=== PATIENT | female | born 1990 | race American Indian/Alaskan Native ===

== ENCOUNTER 2022-01-13 20:38 | Inpatient (IN) | payer OTHER ==
[2022-01-13] MEDS ORDERED: BUTORPHANOL 2 MG/1 ML INJ IV PRN (22:01)
[2022-01-13] MEDS ORDERED: fentaNYL 100 MCG/2 ML INJ IV PRN (22:01)
[2022-01-13] MEDS ORDERED: ePHEDrine SULFATE 50 MG/1 ML INJ IV PRN (22:01)
[2022-01-13] MEDS ORDERED: ACETAMINOPHEN 325 MG TAB PO PRN (22:01)
[2022-01-13] MEDS ORDERED: TERBUTALINE 1 MG/1 ML INJ SUB-Q PRN (22:01)
[2022-01-13] MEDS ORDERED: CARBOPROST TROMETHAMINE 250 MCG/1 ML INJ IM PRN (22:01)
[2022-01-13] MEDS ORDERED: METHYLERGONOVINE MALEATE 0.2 MG/ML VIAL IM PRN (22:01)
--- NOTE | 2022-01-13 22:01 | History and Physical Report ---
History of Present Illness Date of examination: 01/13/22 Date of admission: 01/13/2022 Chief complaint: Induction of labor History of present illness: 31 year-old at 40-3/7 weeks gestation presents to Labor and Delivery for induction of labor secondary to post-due date and GDMA. She has some spotting. She had SVE performed earlier today in the office. She denies leakage of fluid or contractions. There is good movement. She reports that her GDMA is diet-controlled and her accuchecks are within target range. However, random accucheck on admission is >160. She is admitted to Labor and Delivery for pre-induction cervical ripening prior to induction of labor secondary to post-due date and GDMA. Past History Past Medical History: no pertinent history Past Surgical History: no surgical history Family/Genetic History: diabetes, hypertension, stroke, cancer Social history: no significant social history - Obstetrical History Expected Date of Delivery: 01/10/22 Actual Gestation: 40 Week(s) 3 Day(s) : 3 Para: 1 Hx # Term Pregnancies: 1 Number of Pregnancies: 0 Spontaneous Abortions: 1 Induced : 0 Number of Living Children: 1 Medications and Allergies Allergies Allergy/AdvReac Type Severity Reaction Status Date / Time No Known Allergies Allergy Unverified 01/13/22 22:10 Review of Systems All systems: negative - Vital Signs Vital signs: Vital Signs Temp Resp Pulse Ox 97.6 F 18 99 01/13/22 21:05 01/13/22 21:05 01/13/22 21:05 Temp Pulse Resp BP Pulse Ox 97.6 F 104 H 18 124/75 99 01/13/22 21:05 01/13/22 21:57 01/13/22 21:05 01/13/22 21:17 01/13/22 21:57 - Physical Exam Breasts: Positive: normal Cardiovascular: Regular rate Lungs: Positive: Normal air movement Abdomen: Positive: normal appearance Genitourinary (Female): Positive: normal external genitalia, normal perenium Vulva: both: normal Vagina: Positive: normal moisture Uterus: Positive: enlarged Adnexa: both: normal Anus/Rectum: Positive: normal perianal skin Extremities: Positive: normal Deep Tendon Reflex Grade: Normal +2 - Obstetrical FHR: category 1 Uterine Contraction Monitor Mode: External Cervical Dilatation: 1 (Mid) Cervical Effacement Percentage: 50 (Soft) station: -3 Uterine Contraction Pattern: Irregular Results All other labs normal. Ultrasound: pending Assessment and Plan - Patient Problems (1) 40 weeks gestation of Current Visit: Yes Status: Acute Plan to address problem: care is up-to-date with [employer]. She is GBS (-). (2) Postmaturity , 40-42 weeks gestation Current Visit: Yes Status: Acute Plan to address problem: The patient is admitted to Labor adn Delivery for induction of labor. (3) Gestational diabetes mellitus (GDM) in third trimester Current Visit: Yes Status: Acute Plan to address problem: She reports that her GDMA is diet-controlled and her accuchecks are within target range. However, random accucheck on admission is >160. Lantus 24 units SQ x1 is ordered. ADA diet is ordered. Check FBS and 2 hour PP accuchecks for now, and q1h accuchecks in active labor. The goal accucheck range is 79-99. She is admitted to Labor and Delivery for pre-induction cervical ripening prior to induction of labor secondary to post-due date and GDMA. (4) Obesity complicating , third trimester Current Visit: Yes Status: Acute (5) Encounter for induction of labor Current Visit: Yes Status: Acute Plan to address problem: Ripen cervix with oral Cytotec.
[2022-01-13] MEDS ORDERED: INSULIN GLARGINE 100 UNITS/ML SUB-Q SCH (22:09)
[2022-01-13 22:19] LABS: Hematocrit 33.7 % (30.3-42.9); Hemoglobin 10.8 gm/dl (10.1-14.3); Mean Corpuscular HGB Conc 32 % (30-34); Mean Corpuscular Volume 82 fl (79-97); Platelet Count 261 K/mm3 (140-440); Red Cell Distribution Width 15.3 % (13.2-15.2)
[2022-01-13] MEDS: miSOPROStol 25 MCG TAB PO SCH (23:04)
--- NOTE | 2022-01-13 23:32 | Ultrasound Report ---
ULTRASOUND OBSTETRIC LIMITED INDICATION / CLINICAL INFORMATION: Gesational diabetes, Maternal Obesity, Macrosomia. Clinical Gestational Age (GA) in weeks, days: 40 weeks 3 days TECHNIQUE: Transabdominal. COMPARISON: None available. FINDINGS: NUMBER: Single PRESENTATION: cephalic PLACENTA: anterior, right lateral and free of the os. AMNIOTIC FLUID VOLUME: normal AMNIOTIC FLUID INDEX (ANNAMARIE) in cm (if measured): 8.6 MEASUREMENTS: - Biparietal Diameter = 9.6 cm = 30 weeks, 1 days - Head Circumference = 35.1 cm = 41 weeks, 0 days - Abdominal Circumference = 37.3 cm = 41 weeks, 2 days - Femur Length = 7.6 cm = 38 weeks, 6 days - Estimated Weight (in grams, if calculated): 4102 g - Heart Rate (beats per minute): 154 ADDITIONAL FINDINGS: None. PERCENTILE ESTIMATED WEIGHT (if calculated): AVERAGE ULTRASOUND AGE (AUA) in weeks, days = 40 weeks 1 day IMPRESSION: 1. Single intrauterine with AUA of 40 weeks, 1 days 2. No significant sonographic abnormality. 3. Single viable IUP in a cephalic presentation with anterior placenta and normal ANNAMARIE. Signer Name: Bronwyn Munoz MD Signed: 01/13/2022 11:28 PM Workstation Name: [id number]
[2022-01-14] MEDS: SODIUM CHLORIDE 0.9% 1000 ML 1,000 ML IV SCH ×2 (01:20→14:53)
[2022-01-14] MEDS: miSOPROStol 25 MCG TAB PO SCH ×2 (03:26→07:50)
[2022-01-14] MEDS ORDERED: LANOLIN/ZINC/DIMETHICONE (LANSINOH) 7 GM TP PRN (11:01)
[2022-01-14] MEDS ORDERED: BENZOCAINE/MENTHOL 20/0.5% TOP SPRAY 56 GM TP PRN (11:01)
[2022-01-14] MEDS ORDERED: PROMETHAZINE 25 MG RECT SUPP PR PRN (11:01)
[2022-01-14] MEDS ORDERED: PROMETHAZINE 25 MG TAB PO PRN (11:01)
[2022-01-14] MEDS ORDERED: HYDROcodone/ACETAMINOPHEN 5-325 MG TAB PO PRN (11:01)
[2022-01-14] MEDS ORDERED: WITCH HAZEL/ GLYCERIN PAD TP PRN (11:01)
[2022-01-14] MEDS ORDERED: diphenhydrAMINE 25 MG CAP PO PRN (11:01)
--- NOTE | 2022-01-14 11:46 | Progress Note ---
Assessment and Plan A: IUP @ 40 4/7 Weeks Category I Tracing SROM Maternal Obesity GDM A1 GBS Negative P: IUPC Placed Start Pitocin Augmentation Continue MD Management of GDM Subjective - Subjective Date of service: 01/14/22 Patient reports: movement normal, contractions (mild) Objective - Vital Signs Vital Signs: Vital Signs - 12hr 01/13/22 01/14/22 01/14/22 23:45 00:05 03:23 Temperature 98 F 98.2 F Pulse Rate 88 90 71 Respiratory 17 19 Rate Blood Pressure 128/74 120/70 O2 Sat by Pulse 99 Oximetry O2 Sat by Pulse Oximetry [ Anterior Bilateral Throughout] 01/14/22 01/14/22 01/14/22 07:08 07:30 07:31 Temperature Pulse Rate 81 76 Respiratory Rate Blood Pressure 129/72 O2 Sat by Pulse 99 Oximetry O2 Sat by Pulse 99 Oximetry [ Anterior Bilateral Throughout] 01/14/22 01/14/22 01/14/22 07:35 07:40 07:45 Temperature Pulse Rate 79 74 75 Respiratory Rate Blood Pressure O2 Sat by Pulse 99 99 99 Oximetry O2 Sat by Pulse Oximetry [ Anterior Bilateral Throughout] 01/14/22 11:24 Temperature Pulse Rate 88 Respiratory Rate Blood Pressure 129/77 O2 Sat by Pulse Oximetry O2 Sat by Pulse Oximetry [ Anterior Bilateral Throughout] - Exam Breasts: deferred Cardiovascular: Regular rate Lungs: Normal air movement Abdomen: Present: normal appearance, soft Uterus: Present: normal, firm, fundal height above umbilicus FHR: category 1 Uterine Contraction Monitor Mode: Internal Cervical Dilatation: 3 (SROM of a small amount of clear fluid at 111) Cervical Effacement Percentage: 50 station: -3 Uterine Contraction Pattern: Irregular Uterine Tone Measurement Phase: Resting Uterine Contraction Intensity: Mild Extremities: normal - Labs Labs: Abnormal Labs 01/13/22 01/13/22 21:40 21:40 MCH 26 L RDW 15.3 H Hemoglobin A1c 6.7 H Laboratory Results - last 24 hr 01/13/22 01/13/22 01/13/22 21:40 21:40 21:40 WBC 7.1 RBC 4.10 Hgb 10.8 Hct 33.7 MCV 82 MCH 26 L MCHC 32 RDW 15.3 H Plt Count 261 Hemoglobin A1c 6.7 H Blood Type O POSITIVE Antibody Screen Negative
[2022-01-14] MEDS ORDERED: IBUPROFEN 800 MG TAB PO SCH (12:00)
[2022-01-14] MEDS: OXYTOCIN DRIP 30 UNITS/500 ML BAG IV SCH ×5 (13:30→19:21)
[2022-01-14] MEDS ORDERED: ONDANSETRON 4 MG/2 ML INJ ONE (15:23)
[2022-01-14] MEDS ORDERED: LACTATED RINGERS 1,000 ML ONE (15:52)
[2022-01-14] MEDS ORDERED: LACTATED RINGERS 1,000 ML IV ONE (16:00)
[2022-01-14] MEDS ORDERED: NALOXONE 0.4 MG/1 ML INJ IV PRN (18:48)
[2022-01-14] MEDS ORDERED: ePHEDrine SULFATE 50 MG/1 ML INJ IV PRN (18:48)
--- NOTE | 2022-01-14 19:33 | Anesthesia Consultation ---
Anesthesia Consult and Med Hx Date of service: 01/14/22 - Airway Anesthetic Teeth Evaluation: Poor ROM Head & Neck: Adequate Mental/Hyoid Distance: Adequate Mallampati Class: Class II Intubation Access Assessment: Probably Good - Pulmonary Exam CTA: Yes - Cardiac Exam Cardiac Exam: RRR - Pre-Operative Health Status ASA Pre-Surgery Classification: ASA3 Proposed Anesthetic Plan: Epidural - Pulmonary Hx Smoking: No Hx Asthma: No COPD: No Hx Pneumonia: No - Cardiovascular System Hx Hypertension: No - Central Nervous System Hx Seizures: No Hx Psychiatric Problems: No - Endocrine Hx Renal Disease: No Hx End Stage Renal Disease: No Hx Non-Insulin Dependent Diabetes: Yes Hx Hypothyroidism: No Hx Hyperthyroidism: No - Hematic Hx Anemia: No Hx Sickle Cell Disease: No - Other Systems Hx Alcohol Use: No Hx Substance Use: No Hx Obesity: Yes
--- NOTE | 2022-01-14 19:35 | Progress Note ---
Labor Epidural - Labor Epidural Start Time: 18:55 Stop Time: 19:10 Performed by:: DIONY SKELTON Procedure: Patient is requesting epidural for labor pain. H&P and labs reviewed. Procedure explained, questions answered, consent obtained. Patient placed in sitting position with monitors applied. Timeout performed immediately before start of procedure. Prep/drape in usual sterile fashion. Skin localized 3 mL 1% lidocaine at L[3]-L[4] interspace. 17-gauge Touhy epidural needle advanced to MEGHA with saline at [8] cm. No blood/CSF noted via epidural needle. Epidural catheter advanced to [12] cm. Negative aspiration for blood and CSF via catheter, negative response to test dose 3 ml 1.5% lidocaine w/ Epi. Sterile dressing applied followed by tape reinforcement. Patient tolerated procedure well. No immediate complications noted.
[2022-01-14] MEDS: fentaNYL-BUPIV 2 MCG/ML-0.125% 200 MCG/100 ML BAG EPIDURAL SCH (19:53)
[2022-01-14 22:56] LABS: Hematocrit 35.8 % (30.3-42.9); Hemoglobin 11.8 gm/dl (10.1-14.3)
[2022-01-15] MEDS: fentaNYL-BUPIV 2 MCG/ML-0.125% 200 MCG/100 ML BAG EPIDURAL SCH (05:02)
[2022-01-15] MEDS: SODIUM CHLORIDE 0.9% 1000 ML 1,000 ML IV SCH (09:43)
[2022-01-15] MEDS ORDERED: PRENATAL VIT27-FE FUMARATE-FOLIC ACID VIT TAB PO SCH (10:00)
[2022-01-15] MEDS ORDERED: PROMETHAZINE 25 MG TAB PO PRN (11:50)
[2022-01-15] MEDS ORDERED: LANOLIN/ZINC/DIMETHICONE (LANSINOH) 7 GM TP PRN (11:50)
[2022-01-15] MEDS ORDERED: BENZOCAINE/MENTHOL 20/0.5% TOP SPRAY 56 GM TP PRN (11:50)
[2022-01-15] MEDS ORDERED: WITCH HAZEL/ GLYCERIN PAD TP PRN (11:50)
[2022-01-15] MEDS ORDERED: HYDROcodone/ACETAMINOPHEN 5-325 MG TAB PO PRN (11:50)
[2022-01-15] MEDS ORDERED: diphenhydrAMINE 25 MG CAP PO PRN (11:50)
--- NOTE | 2022-01-15 12:05 | Procedure Note ---
OB Delivery Note - Delivery Date of Delivery: 01/15/22 (1032) Surgeon: HUONG RODRÍGUEZ Estimated blood loss: 200cc - Vaginal Delivery presentation: vertex Intrapartum events: meconium, foul smelling fluid, uterine inversion, other(please specify) (GDM) Delivery induction: misoprostol Delivery augmentation: pitocin Delivery monitor: external FHT, internal uterine Delivery placenta: spontaneous Delivery cord: 3 umbilical vessels Episiotomy: none Delivery laceration: 1st degree Delivery repair: vicryl Anesthesia: epidural Delivery comments: of a live 13 female over a 1st degree vaginal laceration under epidural anesthesia with Apgars of 3 and 7 at 01/15/2022. Cord double clamped and cut by LARA Rodríguez, Infant not stimulated and handed directly to awaiting NICU/RESP team due to thick, foul smelling, meconium stained fluids. Spontaneous delivery of placenta complete and intact with Gardner side presenting at 1036. Fundus is firm and midline located 4 below the U. Lochia is scant. Placenta to pathology. Cord blood collected. Vaginal laceration repaired with 3-[address]-1. - A at 1 minute: 3 at 5 minutes: 7 Infant Gender: Female ()
[2022-01-15] MEDS: IBUPROFEN 800 MG TAB PO SCH (17:57)
[2022-01-16 01:01] LABS: Hematocrit 31.6 % (30.3-42.9); Hemoglobin 10.2 gm/dl (10.1-14.3)
--- NOTE | 2022-01-16 08:54 | Progress Note ---
Assessment and Plan A: PPD # 1- stable P: Discharge home in am Discharge instructions given Subjective - Subjective Date of service: 01/16/22 Principal diagnosis: PPD #1 Patient reports: appetite normal [place]: doing well Objective - Vital Signs Latest vital signs: Vital Signs Temp Pulse Resp BP Pulse Ox Pulse Ox 01/15/22 23:45 98.0 F 76 20 120/64 98 01/15/22 20:44 98 01/15/22 17:01 98.1 F 101 H 16 120/71 99 01/15/22 14:09 98 01/15/22 12:11 77 99 01/15/22 12:06 75 100 01/15/22 12:05 80 121/62 01/15/22 12:01 77 99 01/15/22 11:56 78 100 01/15/22 11:51 81 99 01/15/22 11:50 78 115/61 01/15/22 11:46 83 100 01/15/22 11:41 89 98 01/15/22 11:36 70 99 01/15/22 11:35 85 110/60 01/15/22 11:31 79 99 01/15/22 11:26 85 98 01/15/22 11:21 83 99 01/15/22 11:20 82 116/72 01/15/22 11:16 94 H 99 01/15/22 11:11 87 100 01/15/22 11:06 98 H 99 01/15/22 11:01 86 99 01/15/22 11:00 87 122/73 01/15/22 10:52 104 H 120/70 01/15/22 10:28 103 H 98 01/15/22 10:27 90 91 01/15/22 10:23 94 H 97 01/15/22 10:22 107 H 116/69 01/15/22 10:21 29 L 01/15/22 10:18 66 69 L 01/15/22 10:13 51 L 74 L 01/15/22 10:10 117 H 92 01/15/22 10:08 90 100 01/15/22 10:07 86 106/60 01/15/22 10:03 78 97 01/15/22 09:58 82 98 01/15/22 09:54 76 110/56 01/15/22 09:53 73 98 01/15/22 09:48 78 99 01/15/22 09:43 79 98 01/15/22 09:38 81 97 01/15/22 09:37 81 109/56 01/15/22 09:33 79 98 01/15/22 09:28 79 97 01/15/22 09:23 81 97 01/15/22 09:22 82 107/59 01/15/22 09:18 82 97 01/15/22 09:13 77 97 01/15/22 09:08 86 96 01/15/22 09:07 83 103/57 01/15/22 09:03 82 97 01/15/22 08:58 83 97 Intake and Output 01/15/22 01/16/22 01/16/22 22:59 06:59 14:59 Intake Total 200 Output Total 1000 Balance -800 Intake: Oral 200 Output: Urine 1000 Void 1000 Other: Total, Intake Amount 200 Total, Output Amount 300 - Exam Breasts: Present: deferred Cardiovascular: Present: Regular rate Lungs: Present: Clear to auscultation Abdomen: Present: soft Vulva: both: normal Uterus: Present: fundal height below umbilicus Deep Tendon Reflex Grade: Normal +2
--- NOTE | 2022-01-16 08:56 | Discharge Summary ---
Providers - Providers Date of Admission: 01/13/22 22:01 Date of discharge: 01/17/22 Attending physician: REBECCA MCWILLIAMS MD Primary care physician: REBECCA MCWILLIAMS MD Hospitalization Reason for admission: active labor Delivery: Laceration: 1st degree Incision: intact Other procedures: none complications: none Discharge diagnosis: IUP at term delivered baby: female Condition at discharge: Good Disposition: 01 HOME / SELF CARE / HOMELESS Plan - Provider Discharge Summary Activity: routine, no sex for 6 weeks, no strenuous exercise Diet: routine Instructions: routine Additional instructions: [] Smoking cessation referral if applicable(refer to patient education folder for contact #) [] Refer to [facility] Booklet Call your doctor immediately for: * Fever > 100.5 * Heavy vaginal bleeding ( >1 pad per hour) * Severe persistent headache * Shortness of breath * Reddened, hot, painful area to leg or breast * Drainage or odor from incision. * Keep incision clean and dry at all times and follow doctor's instructions regarding bathing/showering - Follow up plan Follow up: REBECCA MCWILLIAMS MD [Primary Care Provider] - 6 Weeks
[2022-01-16] MEDS ORDERED: PRENATAL VIT27-FE FUMARATE-FOLIC ACID VIT TAB PO SCH (10:00)
[2022-01-16] MEDS: IBUPROFEN 800 MG TAB PO SCH (11:01)
--- NOTE | 2022-01-16 12:00 | Post Anesthesia Evaluation ---
- Post Anesthesia Evaluation Patient Participated: Yes Airway Patent: Yes Stable Respiratory Function: Yes Nausea/Vomiting: No Temp > 96.8F: Yes Pain Manageable: Yes Adequeate Hydration: Yes Anesthesia Complications: No Block Receding Appropriately: Yes Patient on Ventilator: No
[2022-01-16 14:45] VITALS: BP 114/69
== END 2022-01-16 15:45 | disposition home or self-care (01) | DRG 775 ==
LOC: TRG 20:38 → LD 20:41 → TRG 22:01 → OB 01-15 13:22
PROVIDERS: ADMIT Obstetrics & Gynecology Gynecology; ATTEND Obstetrics & Gynecology Gynecology
PROC: 10E0XZZ Delivery of Products of Conception, External Approach (ICD-10-PCS; principal; 2022-01-15)
PROC: 0HQ9XZZ Repair Perineum Skin, External Approach (ICD-10-PCS; 2022-01-15)
PROC: 3E0R3BZ Introduction of Anesthetic Agent into Spinal Canal, Percutaneous Approach (ICD-10-PCS; 2022-01-15)
PROC: 00HU33Z Insertion of Infusion Device into Spinal Canal, Percutaneous Approach (ICD-10-PCS; 2022-01-15)
DX: O77.0 Labor and delivery complicated by meconium in amniotic fluid (principal); O48.0 Post-term pregnancy; O99.214 Obesity complicating childbirth; Z3A.40 40 weeks gestation of pregnancy; Z20.822 Contact with and (suspected) exposure to COVID-19; O70.0 First degree perineal laceration during delivery; Z83.3 Family history of diabetes mellitus; Z82.3 Family history of stroke; Z82.49 Family history of ischemic heart disease and other diseases of the circulatory system; Z37.0 Single live birth; O24.410 Gestational diabetes mellitus in pregnancy, diet controlled
CPT/HCPCS: 36415; 76816; 82962; 83036; 85014; 85018; 85027; 86850; 86900; 86901; 88307; 96360; 96361; 96365; 96366; 96374; G0378; J3490; J0595; J1815; J2405; J2590; J7030; U0003